=== PATIENT | female | born 1960 | race Caucasian/White ===

== ENCOUNTER → 2018-08-04 | Outpatient (CLI) | payer OTHER ==
[~2018-08-04] MED LIST: IOHEXOL 240 MG/ML 50ML VIAL. PO ONE; IOHEXOL 300 MG/ML 100ML VIAL. IV ONE
--- NOTE | 2018-08-04 13:10 | RAD ---
CT CHEST ABD PELVIS W/CONTRAST Indication: Breast cancer, chest and abdomen pain Technique: Postcontrast CT imaging was performed of the chest, abdomen, pelvis, multiplanar reconstruction images submitted. Oral contrast was also given. One or more of the following individualized dose reduction techniques were utilized for this examination: 1. Automated exposure control 2. Adjustment of the mA and/or kV according to patient size 3. Use of iterative reconstruction technique. Comparison: None CHEST: Findings: There have been bilateral mastectomies, bilateral implants present. No significantly enlarged nodes are identified of the chest. There is no infiltrate, pleural or pericardial effusion, pneumothorax. There is a small 0.4 cm noncalcified left lower lobe pulmonary nodule image 41 series 2. Minimal density near the right lung apex is more likely due to fibrotic change although there is a small nodular focus of density near the right apex about 0.8 cm image 17 series 2. There is also small subpleural right upper lobe nodule image 21 series 2 about 0.3 cm, another small focus of subpleural right upper lobe density image 24 about 0.3 cm. Major airways are patent. Thoracic aortic caliber is within normal limits, no intraluminal flap. Exam does not accurately evaluate for pulmonary embolic disease. Thoracic vertebral body AP alignment is maintained, no defined marrow lesion identified by CT. There is degenerative disc disease and spondylosis at the visualized C5-6 level. IMPRESSION: 1. There are small noncalcified pulmonary nodules, largest about 0.8 cm closer to the right apex although findings near the right apex more likely related to fibrotic change. 3-6 month follow-up is recommended as per revised Fleischner guidelines. 2. Abdomen pelvis: FINDINGS: There are splenic granulomas. Both kidneys enhance, no hydronephrosis. No defined hepatic or pancreatic lesion is identified. Gallbladder is present without obvious intraluminal abnormality by CT. There is no significant adrenal nodularity. Bowel is not significantly dilated. There is no free fluid or free air. There is retained stool greater of the descending and sigmoid colon. There is mild sigmoid diverticulosis, not associated with significant inflammatory type change. Appendix is not confidently identified if still present. There is multilevel lumbar facet degenerative change. There is vacuum disc disease at L2-3. No significantly enlarged nodes are identified. IMPRESSION: 1. There is no CT evidence of metastatic disease to the abdomen or pelvis. 2. There is sigmoid diverticulosis. No significant inflammatory type change is identified. Electronically signed by: Aniket Napoles MD (08/04/2018 1:07 PM) [id number]
== END | disposition home or self-care (01) ==
LOC: CT 09:24
PROVIDERS: ATTEND Internal Medicine Hematology & Oncology
DX: K57.30 Diverticulosis of large intestine without perforation or abscess without bleeding (principal); R91.8 Other nonspecific abnormal finding of lung field; M50.322 Other cervical disc degeneration at C5-C6 level; M47.812 Spondylosis without myelopathy or radiculopathy, cervical region; M51.36 Other intervertebral disc degeneration, lumbar region; Z85.3 Personal history of malignant neoplasm of breast; Z98.82 Breast implant status
CPT/HCPCS: 71260; 74177; Q9966; Q9967